=== PATIENT | male | born 1995 | race Caucasian/White ===

== ENCOUNTER 2017-03-26 08:47 | Emergency (ER) | payer OTHER ==
--- NOTE | 2017-03-26 09:49 | ED CLINICAL REPORT ---
Clinical Report - Physicians/Mid Levels [facility] [address] [place] [place] [address] 03/26/2017 8:48 Patient: DENICE POWERS Time Seen: 09:24. Arrived- By private vehicle. Historian- patient. HISTORY OF PRESENT ILLNESS Chief Complaint: Injury to the right foot. The injury happened just prior to arrival. The patient sustained a direct blow. He sustained a crush injury- dropped object on foot (an 80 pound metal object was dropped on his the base of his R great toe). Occurred at work. Patient is experiencing mild pain. No other injury. REVIEW OF SYSTEMS The patient complains of pain on weight bearing. He has had swelling. No weakness. All systems otherwise negative, except as recorded above. PAST HISTORY Problems: ADD - Attention Deficit Disorder. Sprain. Additional Surgeries: Appendectomy. Medications: None. Allergies: No Known Drug Allergy. SOCIAL HISTORY Occasional alcohol use. FAMILY HISTORY No significant family medical history. ADDITIONAL NOTES The nursing notes have been reviewed. PHYSICAL EXAM Vital Signs: 03/26/2017 09:03 BP: 143/79. HR: 65. RR: 16. O2 saturation: 99%. Temp: 98.2 F. Pain level now: 3/10. Have been reviewed. Appearance: Alert. Head: Head atraumatic. Eyes: Pupils equal, round and reactive to light. ENT: Pharynx normal. Neck: Neck supple. CVS: Heart sounds normal. Respiratory: No respiratory distress. Breath sounds normal. Abdomen: No visible injury. Soft and nontender. Bowel sounds normal. No organomegaly. No mass. Back: Normal inspection. ROM normal. Skin: Skin intact. Skin warm and dry. Extremities: Right dorsal foot: mild tenderness and swelling and small ecchymosis of the distal aspect aspect of the dorsal foot. Neurovascular intact distally. No ligamentous laxity present. Extremities otherwise negative. Neuro, Vascular and Tendons: Vascular status intact. Sensation intact. Motor intact. Tendon function intact. Gait: Limping gait. Neuro: No motor deficit. No sensory deficit. LABS, X-RAYS, AND EKG X-Rays: Right foot negative. The X-rays were independently viewed by me. PROGRESS AND PROCEDURES Course of Care: Patient is stable. Patient/family counseled. Old medical records reviewed. Other: (L and I form completed). Disposition: Discharged. Condition: stable. CLINICAL IMPRESSION Crush injury to the right foot. INSTRUCTIONS Apply ice for 20 minutes four times a day until better. Don't apply ice directly to skin and don't use while asleep. Wear post-op shoe until released. No driving or operating machinery while taking medication. You may walk and bear weight as tolerated. Do not work for three days. Warnings: GENERAL WARNINGS: Return or contact your physician immediately if your condition worsens or changes unexpectedly, if not improving as expected, or if other problems arise. Prescription Medications: Ibuprofen 600mg tablets: take 1 tablet orally every 8 hours as needed for pain. Dispense thirty (30). No refills. Ultram 50 mg: take 1-2 orally every 6 hours. Dispense ten (10). No refills. Substitution is permissible. Understanding of the discharge instructions verbalized by patient. Follow-up with: [facility], , , [address], , [place], [id number] Follow up Wednesday in three days. Call for an appointment. (Electronically signed by William Shine MD 03/27/2017 10:11)
--- NOTE | 2017-03-26 09:49 | ED ORDER SUMMARY ---
..... Patient: DENICE POWERS OrderSheet [facility] VisitID: [id number] [address] [place] [address] 21y, M Registration Date/Time: 03/26/2017 ORDER SHEET Weight: 102.0 kg (stated) Allergies: No Known Drug Allergy GENERAL ORDERS: Toe Right Urgent (09:03 03/26/2017 Hannah R.NNai verbal order read back to Sherman Melendrez) ([facility]ck 9:[facility] (9:19 Hannah R.N.) Ice (09:20 03/26/2017 Hannah Goldman verbal order read back to Sherman Melendrez) (9:20 Hannah ParnellN.) MEDICATION ORDERS: IV FLUIDS: ORDER SHEET NOTES: [Electronically signed by William Shine MD (10:11 03/27/2017)] [Electronically signed by Rylan Montilla R.N. (21:03 03/30/2017)] [Electronically locked/signed by Rylan Montilla R.N. (21:03 03/30/2017)]
--- NOTE | 2017-03-26 09:49 | ED CLINICAL REPORT ---
Clinical Report - Physicians/Mid Levels [facility] [address] [place] [address] 03/26/2017 8:48 Patient: DENICE POWERS Time Seen: 09:24. Arrived- By private vehicle. Historian- patient. HISTORY OF PRESENT ILLNESS Chief Complaint: Injury to the right foot. The injury happened just prior to arrival. The patient sustained a direct blow. He sustained a crush injury- dropped object on foot (an 80 pound metal object was dropped on his the base of his R great toe). Occurred at work. Patient is experiencing mild pain. No other injury. REVIEW OF SYSTEMS The patient complains of pain on weight bearing. He has had swelling. No weakness. All systems otherwise negative, except as recorded above. PAST HISTORY Problems: ADD - Attention Deficit Disorder. Sprain. Additional Surgeries: Appendectomy. Medications: None. Allergies: No Known Drug Allergy. SOCIAL HISTORY Occasional alcohol use. FAMILY HISTORY No significant family medical history. ADDITIONAL NOTES The nursing notes have been reviewed. PHYSICAL EXAM Vital Signs: 03/26/2017 09:03 BP: 143/79. HR: 65. RR: 16. O2 saturation: 99%. Temp: 98.2 F. Pain level now: 3/10. Have been reviewed. Appearance: Alert. Head: Head atraumatic. Eyes: Pupils equal, round and reactive to light. ENT: Pharynx normal. Neck: Neck supple. CVS: Heart sounds normal. Respiratory: No respiratory distress. Breath sounds normal. Abdomen: No visible injury. Soft and nontender. Bowel sounds normal. No organomegaly. No mass. Back: Normal inspection. ROM normal. Skin: Skin intact. Skin warm and dry. Extremities: Right dorsal foot: mild tenderness and swelling and small ecchymosis of the distal aspect aspect of the dorsal foot. Neurovascular intact distally. No ligamentous laxity present. Extremities otherwise negative. Neuro, Vascular and Tendons: Vascular status intact. Sensation intact. Motor intact. Tendon function intact. Gait: Limping gait. Neuro: No motor deficit. No sensory deficit. LABS, X-RAYS, AND EKG X-Rays: Right foot negative. The X-rays were independently viewed by me. PROGRESS AND PROCEDURES Course of Care: Patient is stable. Patient/family counseled. Old medical records reviewed. Other: (L and I form completed). Disposition: Discharged. Condition: stable. CLINICAL IMPRESSION Crush injury to the right foot. INSTRUCTIONS Apply ice for 20 minutes four times a day until better. Don't apply ice directly to skin and don't use while asleep. Wear post-op shoe until released. No driving or operating machinery while taking medication. You may walk and bear weight as tolerated. Do not work for three days. Warnings: GENERAL WARNINGS: Return or contact your physician immediately if your condition worsens or changes unexpectedly, if not improving as expected, or if other problems arise. Prescription Medications: Ibuprofen 600mg tablets: take 1 tablet orally every 8 hours as needed for pain. Dispense thirty (30). No refills. Ultram 50 mg: take 1-2 orally every 6 hours. Dispense ten (10). No refills. Substitution is permissible. Understanding of the discharge instructions verbalized by patient. Follow-up with: [facility], , , [address], , [place], [address] Follow up Wednesday in three days. Call for an appointment. (Electronically signed by William Shine MD 03/27/2017 10:11)
--- NOTE | 2017-03-26 09:49 | ED NURSING NOTES ---
Clinical Report - Nurses Located Within [facility] [address] [place] [address] 03/26/2017 8:48 [id number] Triage time 09:00 Mar 26 2017. Chief Complaint: INJURY TO RIGHT FOOT. INJURY TO THE RIGHT GREAT TOE. Alert. CHRISTI COMA SCORE: [place] Coma Scale: 15- eyes open spontaneously (4); best verbal response- oriented x 4 (5); best motor response- obeys commands (6). --09:17 Rylan Montilla R.N. 09:03 03/26/17. BP: 143/79. HR: 65. RR: 16. O2 saturation: 99% on room air. Temp: 98.2 F (oral). Pain level now: 11/20. --09:17 Rylan Montilla R.N. Weight: 102 kg stated. Height/Length: 73 inches Per Patient. BMI: 29.7. Growth Chart Percentile: Weight: 97.6%. Height/Length: 88.9%. --09:06 Rylan Montilla R.N. Medications None. --09:06 Rylan Montilla R.N. Allergies No Known Drug Allergy. --09:06 Rylan Montilla R.N. Medication/allergy information source: the patient. --09:17 Rlyan Montilla R.N. History Arrived by private vehicle. Historian: patient. Accompanied by father. Primary physician (none). ( (R) Great Toe Injury/Pain. Pt states that he was loading a cast iron ring (~ 100 lbs) on a garay, it slipped off and feel 3 ft onto his toe.). This occurred just prior to arrival and today. Occurred at work. Mechanism of injury: a single blow (cast iron ring (~100 lbs)). He has had trouble walking. 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 PAST MEDICAL HX: Tetanus status: unknown. Immunizations: up-to-date. SOCIAL HX: Smoker- current status unknown. Alcohol use; consumes five beers occasionally. (monthly). SELF HARM ASSESSMENT: A self harm assessment was performed. The patient answered "no" to the question "Have you recently felt down, depressed, or hopeless?" and "Have you noticed less interest or pleasure in doing things?". FALL RISK ASSESSMENT: Fall risk assessment completed. No fall risk identified. NUTRITIONAL RISK ASSESSMENT: The nutritional risk assessment revealed no deficiencies. LEARNING NEEDS ASSESSMENT: The learning needs assessment revealed no barriers. FUNCTIONAL ASSESSMENT: Functional assessment performed: mobility impairment present- this mobility impairment is a new problem. new difficulty in ambulating. SKIN INTEGRITY ASSESSMENT: Skin integrity risk assessment completed. No skin integrity risk identified. --09:17 Rylan Montilla R.N. PROBLEMS: ADD - Attention Deficit Disorder. Sprain. --09: Rylan Montilla R.N. Ruptured Achilles [RuleOut]. --09: Rylan Montilla R.N. ADDITIONAL SURGERIES: Appendectomy. --09: Rylan Montilla R.N. Interventions ID band on patient. To treatment room. --:17 Rylan Montilla R.N. PHYSICAL ASSESSMENT Ambulatory to room. GENERAL / NEURO / PSYCH: Oriented X 4. Appears in pain. EXTREMITIES: Limited ROM present ((R) Great Toe). Pain with weight bearing. Limping gait. Right foot: tenderness, swelling and ecchymosis of the first toe. SKIN: Skin intact. Skin is warm and dry. --09:18 Rylan Montilla R.N. NURSING PROGRESS NOTES Reassurance given to the patient. Patient identifiers checked. Call light placed in reach. Side rails up x 1. Bed placed in lowest position. Brakes of bed on. Patient ready for evaluation- chart flagged and ED physician notified. --09:19 Rylan Montilla R.N. Cold pack applied (to proximal (R) Great Toe). --09:20 Rylan Montilla R.N. 09:10 03/26/17. ( X-ray in room of (R) Great Toe). --09:21 Rylan Montilla R.N. ( Patient was given medium cast boot for right foot.). --11:37 Kalee Hudson. DISPOSITION / DISCHARGE Departure time: 1008. --11:25 Rylan Montilla R.N. 10:00 03/26/17. BP: 123/73. HR: 48. RR: 16. O2 saturation: 99% on room air. Temp: 97.6 F (oral). Pain level now: 11/20. --11:27 Rylan Montilla R.N. 10:00. Condition at departure: improved. No learning barriers present. Discharge instructions provided and reviewed with the patient. Reviewed medication(s) dosing information (prescription given to pt). Reviewed foot care instructions (apply ice pack per discharge instructions). Reviewed referral to family practice for followup ([facility]). Patient verbalized understanding. Written instructions provided in Omani. The patient was discharged by the physician. He was discharged home and accompanied by family. He left the Emergency Department ambulatory and via private vehicle. Family member driving. --11:32 Rylan Montilla R.N. Locked/Released at 03/30/2017 21:03 by Rylan Montilla R.N.
--- NOTE | 2017-03-26 09:49 | ED NURSING NOTES ---
Clinical Report - Nurses [facility] [address] [place] [address] 03/26/2017 8:48 [id number] Triage time 09:00 Mar 26 2017. Chief Complaint: INJURY TO RIGHT FOOT. INJURY TO THE RIGHT GREAT TOE. Alert. CHRISTI COMA SCORE: [place] Coma Scale: 15- eyes open spontaneously (4); best verbal response- oriented x 4 (5); best motor response- obeys commands (6). --09:17 Rylan Montilla R.N. 09:03 03/26/17. BP: 143/79. HR: 65. RR: 16. O2 saturation: 99% on room air. Temp: 98.2 F (oral). Pain level now: 11/20. --09:17 Rylan Montilla R.N. Weight: 102 kg stated. Height/Length: 73 inches Per Patient. BMI: 29.7. Growth Chart Percentile: Weight: 97.6%. Height/Length: 88.9%. --09:06 Rylan Montilla R.N. Medications None. --09:06 Rylan Montilla R.N. Allergies No Known Drug Allergy. --09:06 Rylan Montilla R.N. Medication/allergy information source: the patient. --09:17 Rylan Montilla R.N. History Arrived by private vehicle. Historian: patient. Accompanied by father. Primary physician (none). ( (R) Great Toe Injury/Pain. Pt states that he was loading a cast iron ring (~ 100 lbs) on a garay, it slipped off and feel 3 ft onto his toe.). This occurred just prior to arrival and today. Occurred at work. Mechanism of injury: a single blow (cast iron ring (~100 lbs)). He has had trouble walking. Treatment [employer] ROOM: Ice. PAST MEDICAL HX: Tetanus status: unknown. Immunizations: up-to-date. SOCIAL HX: Smoker- current status unknown. Alcohol use; consumes five beers occasionally. (monthly). SELF HARM ASSESSMENT: A self harm assessment was performed. The patient answered "no" to the question "Have you recently felt down, depressed, or hopeless?" and "Have you noticed less interest or pleasure in doing things?". FALL RISK ASSESSMENT: Fall risk assessment completed. No fall risk identified. NUTRITIONAL RISK ASSESSMENT: The nutritional risk assessment revealed no deficiencies. LEARNING NEEDS ASSESSMENT: The learning needs assessment revealed no barriers. FUNCTIONAL ASSESSMENT: Functional assessment performed: mobility impairment present- this mobility impairment is a new problem. new difficulty in ambulating. SKIN INTEGRITY ASSESSMENT: Skin integrity risk assessment completed. No skin integrity risk identified. --09:17 Rylan Montilla R.N. PROBLEMS: ADD - Attention Deficit Disorder. Sprain. --09: Rylan Montilla R.N. Ruptured Achilles [RuleOut]. --09: Rylan Montilla R.N. ADDITIONAL SURGERIES: Appendectomy. --09: Rylan Montilla R.N. Interventions ID band on patient. To treatment room. --:17 Rylan Montilla R.N. PHYSICAL ASSESSMENT Ambulatory to room. GENERAL / NEURO / PSYCH: Oriented X 4. Appears in pain. EXTREMITIES: Limited ROM present ((R) Great Toe). Pain with weight bearing. Limping gait. Right foot: tenderness, swelling and ecchymosis of the first toe. SKIN: Skin intact. Skin is warm and dry. --09:18 Rylan Montilla R.N. NURSING PROGRESS NOTES Reassurance given to the patient. Patient identifiers checked. Call light placed in reach. Side rails up x 1. Bed placed in lowest position. Brakes of bed on. Patient ready for evaluation- chart flagged and ED physician notified. --09:19 Rylan Montilla R.N. Cold pack applied (to proximal (R) Great Toe). --09:20 Rylan Montilla R.N. 09:10 03/26/17. ( X-ray in room of (R) Great Toe). --09:21 Rylan Montilla R.N. ( Patient was given medium cast boot for right foot.). --11:37 Kalee Hudson. DISPOSITION / DISCHARGE Departure time: 1008. --11:25 Rylan Montilla R.N. 10:00 03/26/17. BP: 123/73. HR: 48. RR: 16. O2 saturation: 99% on room air. Temp: 97.6 F (oral). Pain level now: 11/20. --11:27 Rylan Montilla R.N. 10:00. Condition at departure: improved. No learning barriers present. Discharge instructions provided and reviewed with the patient. Reviewed medication(s) dosing information (prescription given to pt). Reviewed foot care instructions (apply ice pack per discharge instructions). Reviewed referral to family practice for followup ([facility]). Patient verbalized understanding. Written instructions provided in Greenlandic. The patient was discharged by the physician. He was discharged home and accompanied by family. He left the Emergency Department ambulatory and via private vehicle. Family member driving. --11:32 Rylan Montilla R.N. Locked/Released at 03/30/2017 21:03 by Rylan Montilla R.N.
--- NOTE | 2017-03-26 09:49 | ED ORDER SUMMARY ---
..... Patient: DENICE POWERS OrderSheet [facility] VisitID: [id number] [address] [place] [address] 21y, M Registration Date/Time: 03/26/2017 ORDER SHEET Weight: 102.0 kg (stated) Allergies: No Known Drug Allergy GENERAL ORDERS: Toe Right Urgent (09:03 03/26/2017 Hannah R.NNai verbal order read back to Sherman Melendrez) (Ack 9:12 [facility]) (9:19 Hannah R.N.) Ice (09:20 03/26/2017 Hannah Goldman verbal order read back to Sherman Melendrez) (9:20 Hannah ParnellN.) MEDICATION ORDERS: IV FLUIDS: ORDER SHEET NOTES: [Electronically signed by William Shine MD (10:11 03/27/2017)] [Electronically signed by Rylan Montilla R.N. (21:03 03/30/2017)] [Electronically locked/signed by Rylan Montilla R.N. (21:03 03/30/2017)]
--- NOTE | 2017-03-26 09:53 | DIAGNOSTIC IMAGING REPORT ---
PROCEDURE: XR TOE - RIGHT INDICATION: TRAUMA/INJURY TECHNIQUE: Three views. COMPARISON: None. FINDINGS: Osseous structures and joint spaces are normal. IMPRESSION: 1. Normal right foot.
--- NOTE | 2017-03-26 09:53 | DIAGNOSTIC IMAGING REPORT ---
PROCEDURE: XR TOE - RIGHT INDICATION: TRAUMA/INJURY TECHNIQUE: Three views. COMPARISON: None. FINDINGS: Osseous structures and joint spaces are normal. IMPRESSION: 1. Normal right foot.
--- NOTE | 2017-03-30 21:04 | ED DISCHARGE INSTRUCTIONS ---
Patient: DENICE POWERS General Instructions [facility] VisitID: [id number] [address] [place] [address] 21y, M Registration Date/Time: 03/26/2017 Crush injury to the right foot. INSTRUCTIONS Apply ice for 20 minutes four times a day until better. Don't apply ice directly to skin and don't use while asleep. Wear post-op shoe until released. No driving or operating machinery while taking medication. You may walk and bear weight as tolerated. Do not work for three days. Warnings: GENERAL WARNINGS: Return or contact your physician immediately if your condition worsens or changes unexpectedly, if not improving as expected, or if other problems arise. Prescription Medications: Ibuprofen 600mg tablets: take 1 tablet orally every 8 hours as needed for pain. Dispense thirty (30). No refills. Ultram 50 mg: take 1-2 orally every 6 hours. Dispense ten (10). No refills. Substitution is permissible. Understanding of the discharge instructions verbalized by patient. Follow-up with: [facility], , , [address], , [place], [id number] Follow up Wednesday in three days. Call for an appointment. ADDITIONAL INFORMATION Crush Injury, Foot (No Fx) A crush injury to your foot causes local pain, swelling, and sometimes bruising. There are no broken bones. This injury takes from a few days to a few weeks to heal. If the toenail has been severely injured, it may fall off in 12 weeks. A new one will usually start to grow back within a month. Home care The following guidelines will help you care for your wound at home: You may be given a splint, cast, shoe, or boot to prevent movement at the injury. Unless you were told otherwise, use crutches or a walker anddo notbear weight on the injured foot until cleared by your doctor to do so. (Crutches and walkers can be rented at many pharmacies and surgical/orthopedic supply stores). Do not put weight on a splint; it will break. Keep your leg elevated to reduce pain and swelling. When sleeping, place a pillow under the injured leg. When sitting, support the injured leg so it is level with your waist. This is very important during the first 48 hours. Apply an ice pack (ice cubes in a plastic bag, wrapped in a towel) over the injured area for 20 minutes every 12 hours the first day for pain relief. Continue this 34 times a day until the pain and swelling goes away. You may use acetaminophen or ibuprofen to control pain, unless another pain medicine was prescribed.If you have chronic liver or kidney disease or ever had a stomach ulcer or GI bleeding, talk with your doctor before using these medicines. Keep the splint/cast/boot/shoe dry. When bathing, protect it with a large plastic bag, rubber-banded at the top end. If a fiberglass splint/cast or boot gets wet, you can dry it with a hair-dryer. Unless told otherwise, you can remove a boot or shoe to bathe. If your injury includes exposed cuts or scrapes, clean these daily with soap and water. Apply antibiotic ointment. Watch for the signs of infection listed below. Follow-up care Follow up with your doctor as advised. Return sooner if you are not starting to improve within the nextthreedays. If you were given a splint, it may be changed to a cast or boot at your follow-up visit. Note:X-rays will be reviewed by a radiologist. You will be notified of any new findings that may affect your care. When to seek medical care Get prompt medical attention if any of the following occur: The plaster cast or splint becomes wet or soft The fiberglass cast or splint remains wet for more than 24 hours Increased tightness or pain under the cast or splint Toes become swollen, cold, blue, numb, or tingly Redness, warmth, swelling, drainage from the wound, or foul odor from a cast or splint Fever of 100.4F(38C) or higher, or as directed by your health care provider Ibuprofen Oral tablet What is this medicine? IBUPROFEN (eye BYOO proe fen) is a non-steroidal anti-inflammatory drug (NSAID). It is used for dental pain, fever, headaches or migraines, osteoarthritis, rheumatoid arthritis, or painful monthly periods. It can also relieve minor aches and pains caused by a cold, flu, or sore throat. How should I use this medicine? Take this medicine by mouth with a glass of water. Follow the directions on the prescription label. Take this medicine with food if your stomach gets upset. Try to not lie down for at least 10 minutes after you take the medicine. Take your medicine at regular intervals. Do not take your medicine more often than directed. A special MedGuide will be given to you by the pharmacist with each prescription and refill. Be sure to read this information carefully each time. Talk to your patient insurance clerk regarding the use of this medicine in children. Special care may be needed. What side effects may I notice from receiving this medicine? Side effects that you should report to your doctor or health student career development specialist as soon as possible: allergic reactions like skin rash, itching or hives, swelling of the face, lips, or tongue black or bloody stools, blood in the urine or in vomit breathing problems changes in vision chest pain general ill feeling or flu-like symptoms nausea or vomiting redness, blistering, peeling or loosening of the skin, including inside the mouth slurred speech or weakness on one side of the body stomach pain unexplained weight gain or swelling unusually weak or tired yellowing of eyes or skin Side effects that usually do not require medical attention (report to your doctor or health student career development specialist if they continue or are bothersome): constipation or diarrhea dizziness gas or heartburn stomach upset What may interact with this medicine? Do not take this medicine with any of the following medications: cidofovir ketorolac methotrexate pemetrexed This medicine may also interact with the following medications: alcohol aspirin diuretics lithium other drugs for inflammation like prednisone warfarin What if I miss a dose? If you miss a dose, take it as soon as you can. If it is almost time for your next dose, take only that dose. Do not take double or extra doses. Where should I keep my medicine? Keep out of the reach of children. Store at room temperature between 15 and 30 degrees C (59 and 86 degrees F). Keep container tightly closed. Throw away any unused medicine after the expiration date. What should I tell my health care provider before I take this medicine? They need to know if you have any of these conditions: asthma cigarette smoker drink more than 3 alcohol containing drinks a day heart disease or circulation problems such as heart failure or leg edema (fluid retention) high blood pressure kidney disease liver disease stomach bleeding or ulcers an unusual or allergic reaction to ibuprofen, aspirin, other NSAIDS, other medicines, foods, dyes, or preservatives or trying to get breast-feeding What should I watch for while using this medicine? Tell your doctor or healthcare professional if your symptoms do not start to get better or if they get worse. This medicine does not prevent heart attack or stroke. In fact, this medicine may increase the chance of a heart attack or stroke. The chance may increase with longer use of this medicine and in people who have heart disease. If you take aspirin to prevent heart attack or stroke, talk with your doctor or health student career development specialist. Do not take other medicines that contain aspirin, ibuprofen, or naproxen with this medicine. Side effects such as stomach upset, nausea, or ulcers may be more likely to occur. Many medicines available without a prescription should not be taken with this medicine. This medicine can cause ulcers and bleeding in the stomach and intestines at any time during treatment. Ulcers and bleeding can happen without warning symptoms and can cause . To reduce your risk, do not smoke cigarettes or drink alcohol while you are taking this medicine. You may get drowsy or dizzy. Do not drive, use machinery, or do anything that needs mental alertness until you know how this medicine affects you. Do not stand or sit up quickly, especially if you are an older patient. This reduces the risk of dizzy or fainting spells. This medicine can cause you to bleed more easily. Try to avoid damage to your teeth and gums when you brush or floss your teeth. Tramadol Hydrochloride Oral tablet What is this medicine? TRAMADOL (TRA ma dole) is a pain reliever. It is used to treat moderate to severe pain in adults. How should I use this medicine? Take this medicine by mouth with a full glass of water. Follow the directions on the prescription label. If the medicine upsets your stomach, take it with food or milk. Do not take more medicine than you are told to take. Talk to your patient insurance clerk regarding the use of this medicine in children. Special care may be needed. What side effects may I notice from receiving this medicine? Side effects that you should report to your doctor or health student career development specialist as soon as possible: allergic reactions like skin rash, itching or hives, swelling of the face, lips, or tongue breathing difficulties, wheezing confusion itching light headedness or fainting spells redness, blistering, peeling or loosening of the skin, including inside the mouth seizures Side effects that usually do not require medical attention (report to your doctor or health student career development specialist if they continue or are bothersome): constipation dizziness drowsiness headache nausea, vomiting What may interact with this medicine? Do not take this medicine with any of the following medications: MAOIs like Carbex, Eldepryl, Marplan, Nardil, and Parnate This medicine may also interact with the following medications: alcohol or medicines that contain alcohol antihistamines benzodiazepines bupropion carbamazepine or oxcarbazepine clozapine cyclobenzaprine digoxin furazolidone linezolid medicines for depression, anxiety, or psychotic disturbances medicines for migraine headache like almotriptan, eletriptan, frovatriptan, naratriptan, rizatriptan, sumatriptan, zolmitriptan medicines for pain like pentazocine, buprenorphine, butorphanol, meperidine, nalbuphine, and propoxyphene medicines for sleep muscle relaxants naltrexone phenobarbital phenothiazines like perphenazine, thioridazine, chlorpromazine, mesoridazine, fluphenazine, prochlorperazine, promazine, and trifluoperazine procarbazine warfarin What if I miss a dose? If you miss a dose, take it as soon as you can. If it is almost time for your next dose, take only that dose. Do not take double or extra doses. Where should I keep my medicine? Keep out of the reach of children. Store at room temperature between 15 and 30 degrees C (59 and 86 degrees F). Keep container tightly closed. Throw away any unused medicine after the expiration date. What should I tell my health care provider before I take this medicine? They need to know if you have any of these conditions: brain tumor depression drug abuse or addiction head injury if you frequently drink alcohol containing drinks kidney disease or trouble passing urine liver disease lung disease, asthma, or breathing problems seizures or epilepsy suicidal thoughts, plans, or attempt; a previous suicide attempt by you or a family member an unusual or allergic reaction to tramadol, codeine, other medicines, foods, dyes, or preservatives or trying to get breast-feeding What should I watch for while using this medicine? Tell your doctor or health student career development specialist if your pain does not go away, if it gets worse, or if you have new or a different type of pain. You may develop tolerance to the medicine. Tolerance means that you will need a higher dose of the medicine for pain relief. Tolerance is normal and is expected if you take this medicine for a long time. Do not suddenly stop taking your medicine because you may develop a severe reaction. Your body becomes used to the medicine. This does NOT mean you are addicted. Addiction is a behavior related to getting and using a drug for a non-medical reason. If you have pain, you have a medical reason to take pain medicine. Your doctor will tell you how much medicine to take. If your doctor wants you to stop the medicine, the dose will be slowly lowered over time to avoid any side effects. You may get drowsy or dizzy. Do not drive, use machinery, or do anything that needs mental alertness until you know how this medicine affects you. Do not stand or sit up quickly, especially if you are an older patient. This reduces the risk of dizzy or fainting spells. Alcohol can increase or decrease the effects of this medicine. Avoid alcoholic drinks. You may have constipation. Try to have a bowel movement at least every 2 to 3 days. If you do not have a bowel movement for 3 days, call your doctor or health student career development specialist. Your mouth may get dry. Chewing sugarless gum or sucking hard candy, and drinking plenty of water may help. Contact your doctor if the problem does not go away or is severe. You have been given the following additional information: Crush Injury, Foot/Toe Ibuprofen Oral tablet Tramadol Hydrochloride Oral tablet No driving or operating machinery while taking medication. You may walk and bear weight as tolerated. Do not work for three days. (Electronically signed by William Shine MD 03/27/2017 10:11)
--- NOTE | 2017-03-30 21:04 | ED MAR SUMMARY ---
..... Medication Administration Record [facility] [address] [place], [place] [id number] Patient: DENICE POWERS Visit ID: [id number] 21y, M Weight: 102.0 kg Height/Length: 73 in BMI: 29.7 ALLERGIES: No Known Drug Allergy
--- NOTE | 2017-03-30 21:04 | ED DISCHARGE INSTRUCTIONS ---
Patient: DENICE POWERS General Instructions [facility] VisitID: [id number] [address] [place] [address] 21y, M Registration Date/Time: 03/26/2017 Crush injury to the right foot. INSTRUCTIONS Apply ice for 20 minutes four times a day until better. Don't apply ice directly to skin and don't use while asleep. Wear post-op shoe until released. No driving or operating machinery while taking medication. You may walk and bear weight as tolerated. Do not work for three days. Warnings: GENERAL WARNINGS: Return or contact your physician immediately if your condition worsens or changes unexpectedly, if not improving as expected, or if other problems arise. Prescription Medications: Ibuprofen 600mg tablets: take 1 tablet orally every 8 hours as needed for pain. Dispense thirty (30). No refills. Ultram 50 mg: take 1-2 orally every 6 hours. Dispense ten (10). No refills. Substitution is permissible. Understanding of the discharge instructions verbalized by patient. Follow-up with: [facility], , , [address], , [place], [id number] Follow up Wednesday in three days. Call for an appointment. ADDITIONAL INFORMATION Crush Injury, Foot (No Fx) A crush injury to your foot causes local pain, swelling, and sometimes bruising. There are no broken bones. This injury takes from a few days to a few weeks to heal. If the toenail has been severely injured, it may fall off in 12 weeks. A new one will usually start to grow back within a month. Home care The following guidelines will help you care for your wound at home: You may be given a splint, cast, shoe, or boot to prevent movement at the injury. Unless you were told otherwise, use crutches or a walker anddo notbear weight on the injured foot until cleared by your doctor to do so. (Crutches and walkers can be rented at many pharmacies and surgical/orthopedic supply stores). Do not put weight on a splint; it will break. Keep your leg elevated to reduce pain and swelling. When sleeping, place a pillow under the injured leg. When sitting, support the injured leg so it is level with your waist. This is very important during the first 48 hours. Apply an ice pack (ice cubes in a plastic bag, wrapped in a towel) over the injured area for 20 minutes every 12 hours the first day for pain relief. Continue this 34 times a day until the pain and swelling goes away. You may use acetaminophen or ibuprofen to control pain, unless another pain medicine was prescribed.If you have chronic liver or kidney disease or ever had a stomach ulcer or GI bleeding, talk with your doctor before using these medicines. Keep the splint/cast/boot/shoe dry. When bathing, protect it with a large plastic bag, rubber-banded at the top end. If a fiberglass splint/cast or boot gets wet, you can dry it with a hair-dryer. Unless told otherwise, you can remove a boot or shoe to bathe. If your injury includes exposed cuts or scrapes, clean these daily with soap and water. Apply antibiotic ointment. Watch for the signs of infection listed below. Follow-up care Follow up with your doctor as advised. Return sooner if you are not starting to improve within the nextthreedays. If you were given a splint, it may be changed to a cast or boot at your follow-up visit. Note:X-rays will be reviewed by a radiologist. You will be notified of any new findings that may affect your care. When to seek medical care Get prompt medical attention if any of the following occur: The plaster cast or splint becomes wet or soft The fiberglass cast or splint remains wet for more than 24 hours Increased tightness or pain under the cast or splint Toes become swollen, cold, blue, numb, or tingly Redness, warmth, swelling, drainage from the wound, or foul odor from a cast or splint Fever of 100.4F(38C) or higher, or as directed by your health care provider Ibuprofen Oral tablet What is this medicine? IBUPROFEN (eye BYOO proe fen) is a non-steroidal anti-inflammatory drug (NSAID). It is used for dental pain, fever, headaches or migraines, osteoarthritis, rheumatoid arthritis, or painful monthly periods. It can also relieve minor aches and pains caused by a cold, flu, or sore throat. How should I use this medicine? Take this medicine by mouth with a glass of water. Follow the directions on the prescription label. Take this medicine with food if your stomach gets upset. Try to not lie down for at least 10 minutes after you take the medicine. Take your medicine at regular intervals. Do not take your medicine more often than directed. A special MedGuide will be given to you by the pharmacist with each prescription and refill. Be sure to read this information carefully each time. Talk to your home attendant regarding the use of this medicine in children. Special care may be needed. What side effects may I notice from receiving this medicine? Side effects that you should report to your doctor or health career placement services counselor as soon as possible: allergic reactions like skin rash, itching or hives, swelling of the face, lips, or tongue black or bloody stools, blood in the urine or in vomit breathing problems changes in vision chest pain general ill feeling or flu-like symptoms nausea or vomiting redness, blistering, peeling or loosening of the skin, including inside the mouth slurred speech or weakness on one side of the body stomach pain unexplained weight gain or swelling unusually weak or tired yellowing of eyes or skin Side effects that usually do not require medical attention (report to your doctor or health career placement services counselor if they continue or are bothersome): constipation or diarrhea dizziness gas or heartburn stomach upset What may interact with this medicine? Do not take this medicine with any of the following medications: cidofovir ketorolac methotrexate pemetrexed This medicine may also interact with the following medications: alcohol aspirin diuretics lithium other drugs for inflammation like prednisone warfarin What if I miss a dose? If you miss a dose, take it as soon as you can. If it is almost time for your next dose, take only that dose. Do not take double or extra doses. Where should I keep my medicine? Keep out of the reach of children. Store at room temperature between 15 and 30 degrees C (59 and 86 degrees F). Keep container tightly closed. Throw away any unused medicine after the expiration date. What should I tell my health care provider before I take this medicine? They need to know if you have any of these conditions: asthma cigarette smoker drink more than 3 alcohol containing drinks a day heart disease or circulation problems such as heart failure or leg edema (fluid retention) high blood pressure kidney disease liver disease stomach bleeding or ulcers an unusual or allergic reaction to ibuprofen, aspirin, other NSAIDS, other medicines, foods, dyes, or preservatives or trying to get breast-feeding What should I watch for while using this medicine? Tell your doctor or healthcare professional if your symptoms do not start to get better or if they get worse. This medicine does not prevent heart attack or stroke. In fact, this medicine may increase the chance of a heart attack or stroke. The chance may increase with longer use of this medicine and in people who have heart disease. If you take aspirin to prevent heart attack or stroke, talk with your doctor or health career placement services counselor. Do not take other medicines that contain aspirin, ibuprofen, or naproxen with this medicine. Side effects such as stomach upset, nausea, or ulcers may be more likely to occur. Many medicines available without a prescription should not be taken with this medicine. This medicine can cause ulcers and bleeding in the stomach and intestines at any time during treatment. Ulcers and bleeding can happen without warning symptoms and can cause . To reduce your risk, do not smoke cigarettes or drink alcohol while you are taking this medicine. You may get drowsy or dizzy. Do not drive, use machinery, or do anything that needs mental alertness until you know how this medicine affects you. Do not stand or sit up quickly, especially if you are an older patient. This reduces the risk of dizzy or fainting spells. This medicine can cause you to bleed more easily. Try to avoid damage to your teeth and gums when you brush or floss your teeth. Tramadol Hydrochloride Oral tablet What is this medicine? TRAMADOL (TRA ma dole) is a pain reliever. It is used to treat moderate to severe pain in adults. How should I use this medicine? Take this medicine by mouth with a full glass of water. Follow the directions on the prescription label. If the medicine upsets your stomach, take it with food or milk. Do not take more medicine than you are told to take. Talk to your home attendant regarding the use of this medicine in children. Special care may be needed. What side effects may I notice from receiving this medicine? Side effects that you should report to your doctor or health career placement services counselor as soon as possible: allergic reactions like skin rash, itching or hives, swelling of the face, lips, or tongue breathing difficulties, wheezing confusion itching light headedness or fainting spells redness, blistering, peeling or loosening of the skin, including inside the mouth seizures Side effects that usually do not require medical attention (report to your doctor or health career placement services counselor if they continue or are bothersome): constipation dizziness drowsiness headache nausea, vomiting What may interact with this medicine? Do not take this medicine with any of the following medications: MAOIs like Carbex, Eldepryl, Marplan, Nardil, and Parnate This medicine may also interact with the following medications: alcohol or medicines that contain alcohol antihistamines benzodiazepines bupropion carbamazepine or oxcarbazepine clozapine cyclobenzaprine digoxin furazolidone linezolid medicines for depression, anxiety, or psychotic disturbances medicines for migraine headache like almotriptan, eletriptan, frovatriptan, naratriptan, rizatriptan, sumatriptan, zolmitriptan medicines for pain like pentazocine, buprenorphine, butorphanol, meperidine, nalbuphine, and propoxyphene medicines for sleep muscle relaxants naltrexone phenobarbital phenothiazines like perphenazine, thioridazine, chlorpromazine, mesoridazine, fluphenazine, prochlorperazine, promazine, and trifluoperazine procarbazine warfarin What if I miss a dose? If you miss a dose, take it as soon as you can. If it is almost time for your next dose, take only that dose. Do not take double or extra doses. Where should I keep my medicine? Keep out of the reach of children. Store at room temperature between 15 and 30 degrees C (59 and 86 degrees F). Keep container tightly closed. Throw away any unused medicine after the expiration date. What should I tell my health care provider before I take this medicine? They need to know if you have any of these conditions: brain tumor depression drug abuse or addiction head injury if you frequently drink alcohol containing drinks kidney disease or trouble passing urine liver disease lung disease, asthma, or breathing problems seizures or epilepsy suicidal thoughts, plans, or attempt; a previous suicide attempt by you or a family member an unusual or allergic reaction to tramadol, codeine, other medicines, foods, dyes, or preservatives or trying to get breast-feeding What should I watch for while using this medicine? Tell your doctor or health career placement services counselor if your pain does not go away, if it gets worse, or if you have new or a different type of pain. You may develop tolerance to the medicine. Tolerance means that you will need a higher dose of the medicine for pain relief. Tolerance is normal and is expected if you take this medicine for a long time. Do not suddenly stop taking your medicine because you may develop a severe reaction. Your body becomes used to the medicine. This does NOT mean you are addicted. Addiction is a behavior related to getting and using a drug for a non-medical reason. If you have pain, you have a medical reason to take pain medicine. Your doctor will tell you how much medicine to take. If your doctor wants you to stop the medicine, the dose will be slowly lowered over time to avoid any side effects. You may get drowsy or dizzy. Do not drive, use machinery, or do anything that needs mental alertness until you know how this medicine affects you. Do not stand or sit up quickly, especially if you are an older patient. This reduces the risk of dizzy or fainting spells. Alcohol can increase or decrease the effects of this medicine. Avoid alcoholic drinks. You may have constipation. Try to have a bowel movement at least every 2 to 3 days. If you do not have a bowel movement for 3 days, call your doctor or health career placement services counselor. Your mouth may get dry. Chewing sugarless gum or sucking hard candy, and drinking plenty of water may help. Contact your doctor if the problem does not go away or is severe. You have been given the following additional information: Crush Injury, Foot/Toe Ibuprofen Oral tablet Tramadol Hydrochloride Oral tablet No driving or operating machinery while taking medication. You may walk and bear weight as tolerated. Do not work for three days. (Electronically signed by William Shine MD 03/27/2017 10:11)
--- NOTE | 2017-03-30 21:04 | ED MAR SUMMARY ---
..... Medication Administration Record [facility] [address], [place] [id number] Patient: DENICE POWERS Visit ID: [id number] 21y, M Weight: 102.0 kg Height/Length: 73 in BMI: 29.7 ALLERGIES: No Known Drug Allergy
--- NOTE | 2017-03-30 21:04 | ED MED RECONCILIATION SUMMARY ---
Patient: DENICE POWERS Medication Reconciliation Report [facility] VisitID: [id number] [address] [place] [address] 21y, M Registration Date/Time: 03/26/2017 Weight: 102.0 kg Height/Length: 73 in. BMI: 29.7 ALLERGIES: No Known Drug Allergy The patient's Home Medications are listed below: NONE. The source(s) of the original Home Medication information: patient The following Medications were given to the patient in the Emergency Department: None. The following Medications were prescribed to the patient: Ibuprofen 600mg tablets: take 1 tablet orally every 8 hours as needed for pain. Dispense thirty (30). No refills. -- William Shine MD Ultram 50 mg: take 1-2 orally every 6 hours. Dispense ten (10). No refills. Substitution is permissible. -- William Shine MD
--- NOTE | 2017-03-30 21:04 | ED MED RECONCILIATION SUMMARY ---
Patient: DENICE POWERS Medication Reconciliation Report [facility] VisitID: [id number] [address] [place] [address] 21y, M Registration Date/Time: 03/26/2017 Weight: 102.0 kg Height/Length: 73 in. BMI: 29.7 ALLERGIES: No Known Drug Allergy The patient's Home Medications are listed below: NONE. The source(s) of the original Home Medication information: patient The following Medications were given to the patient in the Emergency Department: None. The following Medications were prescribed to the patient: Ibuprofen 600mg tablets: take 1 tablet orally every 8 hours as needed for pain. Dispense thirty (30). No refills. -- William Shine MD Ultram 50 mg: take 1-2 orally every 6 hours. Dispense ten (10). No refills. Substitution is permissible. -- William Shine MD
== END 2017-03-26 10:08 | disposition home or self-care (01) ==
LOC: ED SRH 08:47
DX: S97.81XA Crushing injury of right foot, initial encounter (principal); W20.8XXA Other cause of strike by thrown, projected or falling object, initial encounter; Y93.89 Activity, other specified; Y99.9 Unspecified external cause status; Y92.9 Unspecified place or not applicable